=== PATIENT | female | born 1970 ===

== ENCOUNTER 2018-05-19 07:05 | Day surgery (SDC) | payer OTHER | END 2018-05-19 12:35 | disposition home or self-care (01) | LOC: AMB-ENDOS 07:05 | DX: K64.8 Other hemorrhoids (principal); K57.30 Diverticulosis of large intestine without perforation or abscess without bleeding; Z12.11 Encounter for screening for malignant neoplasm of colon; Z12.12 Encounter for screening for malignant neoplasm of rectum ==